=== PATIENT | female | born 1945 | race Caucasian/White ===

== ENCOUNTER 2019-02-24 07:31 | Day surgery (SDC) | payer OTHER ==
[2019-02-23 08:33] VITALS: BMI 38.9
[~2019-02-24 07:31] MED LIST: BUPIVACAINE HCL/PF 0.5% (5 MG/ML) 30 ML VIAL IJ ONE
[2019-02-24] MEDS ORDERED: BUPIVACAINE HCL/PF 0.5% (5 MG/ML) 30 ML VIAL IJ ONE ×2 (08:58→10:33)
--- NOTE | 2019-02-24 08:59 | HP ---
Satellite [facility] - Chief Complaint Chief Complaint: left knee pain History of Present Illness: left knee pain, medial meniscus tear History Source: Patient Limitations to Obtaining History: No Limitations - Past Medical History Allergies/Adverse Reactions: Allergies Allergy/AdvReac Type Severity Reaction Status Date / Time No Known Allergies Allergy Verified 02/24/19 08:01 - Current Medications Current Medications: Home Medications Medication Instructions Recorded Atorvastatin Ca [Lipitor] 10 mg PO HS #0 tablet 11/15/11 Acetaminophen [Tylenol] 650 mg PO PRN PRN 02/23/19 Cholecalciferol (Vitamin D3) 2,000 unit PO HS 02/23/19 [Vitamin D] Guaifenesin [Mucinex -] 600 mg PO PRN PRN 02/23/19 Methimazole [Tapazole -] 5 mg PO HS 02/23/19 Satellite Physical Exam - Physical Examination Vital Signs: Vital Signs Period Temp Pulse Resp BP Sys/Duron Pulse Ox Last 24 Hr 98.2 F-98.2 F 70-70 20-20 141-141/65-65 98 General Appearance: Well Nourished ENT: Clear Lung: Clear to auscultation Heart: Regular rate & rhythm Breasts: Soft Abdomen: Soft Extremities: No edema Satellite Impression/Plan - Impression/Plan Impression: left knee medial meniscus tear, OA Operative Procedure: left knee arthroscopy Date to be Performed: 02/24/19
[2019-02-24] MEDS ORDERED: MIDAZOLAM HCL 2 MG/2 ML SINGLE DOSE VIAL ONE (09:19)
[2019-02-24] MEDS ORDERED: ONDANSETRON 4 MG/2 ML VIAL IVPUSH PRN (09:21)
[2019-02-24] MEDS ORDERED: oxyCODONE HCL 5 MG TABLET PO PRN (09:21)
[2019-02-24] MEDS ORDERED: ceFAZolin SODIUM 1 GM VIAL IVPB ONE (09:30)
[2019-02-24] MEDS ORDERED: LACTATED RINGERS SOLUTION 1,000 ML IV SCH (09:30)
[2019-02-24] MEDS ORDERED: PROPOFOL 20 ML ONE (09:50)
[2019-02-24] MEDS ORDERED: DEXAMETHASONE SOD PHOSPHATE 4 MG/1 ML VIAL ONE (09:51)
[2019-02-24] MEDS ORDERED: LIDOCAINE HCL/PF 2% SDV 5ML VIAL ONE (09:51)
[2019-02-24] MEDS ORDERED: ceFAZolin SODIUM 1 GM VIAL ONE ×2 (09:51)
--- NOTE | 2019-02-24 10:42 | OP ---
Operative Note - Note: Operative Date: 02/24/19 Pre-Operative Diagnosis: left knee medial meniscus tear, OA Operation: left knee arthroscopy, partial medial meniscectomy, debridement chondroplasty Findings: Grade 4 OA Surgeon: Adis Whiting Anesthesiologist/OCCUPATIONAL HEALTH PROFESSIONAL: Akua Asher Anesthesia: General, Local Specimens Removed: shavings Estimated Blood Loss (mls): 50 Drains, Volume Out (mls): 0 Blood Volume Replaced (mls): 0 Fluid Volume Replaced (mls): 500 Operative Report Dictated: Yes
[2019-02-24 13:28] VITALS: TEMP 97.5
--- NOTE | 2019-02-24 13:58 | OP ---
DATE OF OPERATION: 02/24/2019 PREOPERATIVE DIAGNOSES: Left knee pain, medial meniscus tear, and osteoarthritis. POSTOPERATIVE DIAGNOSES: Left knee pain, medial meniscus tear, and osteoarthritis. PROCEDURE: Left knee arthroscopy, partial medial meniscectomy, and debridement chondroplasty. SURGEON: Bhupinder Ann MD ASSISTANTS: None. ANESTHESIA: Akua Asher, REF-CRN: LM anesthesia, local intraarticular injection of 20 mL of 0.5% Marcaine. DRAINS: None. COMPLICATIONS: None. SPECIMEN: Arthroscopic shavings. DRAINS: None. BLOOD LOSS: 50 mL. BLOOD GIVEN: None. This patient is a 73-year-old female with a preoperative diagnosis of recurrent left knee pain, osteoarthritis, and medial meniscus tear. After understanding the potential risks, complications, alternatives, and benefits to surgery versus nonsurgical treatment, the patient elected to undergo this procedure. The patient was brought to the operating room, peripheral IV placed, IV sedation given. A tourniquet was applied to left upper leg. The left lower extremity was prepped and draped, was put in the C clamp leg skinner with ample padding throughout, elevated, exsanguinated with an Esmarch bandage. Tourniquet inflated to 275 and then 300 cc of pressure. Superomedial outflow portal was established. A lateral portal was established and arthroscope was introduced in the joint under direct visualization using the spinal needle. A medial portal was established. A shaver was introduced in this joint. Diagnostic arthroscopy was performed. The patient had a tremendous amount of inflammation, torn fibers of the ACL, excessive Hoffa fat pad, and synovitis within the knee joint. This was all debrided with the shaver. After that, much better visualization was obtained. There were 2 radial tears of the posterior horn and body of the medial meniscus. These were debrided with a curved shaver. The patient had wide areas of grade 2 chondromalacia on both the medial tibial plateau and medial femoral condyle, and several areas, each about the size of a nickel, of grade 4 chondromalacia. This was debrided with loose flaps and debris was removed. Next, our attention was turned to the intercondylar notch. The patient had an almost complete tear of the anterior cruciate ligament. She also had a huge arthritic bone spur going up in the intercondylar notch. Both were debrided with a curved shaver and the osteophyte smoothed out. Next, the lateral compartment was directly visualized. She had a discoid meniscus but it did not look torn. The lateral femoral condyle had only grade 1 changes and overall looked good. The patellofemoral joint had widespread areas of grade 4 chondromalacia on both the femoral trochlea and undersurface of the patella as well as a lot of synovitis. This was debrided. Debridement chondroplasty was performed, and put the knee through a full range of motion. The patient had a lot of arthritis at the patellofemoral joint and I cleaned it up as much as possible. The area was copiously irrigated and washed out. All excess saline and instrumentation were removed. The arthroscopy portals were closed with 3-0 nylon sutures. The area was then washed and dried. Then 20 mL of 0.5% Marcaine was introduced into the joint. The incisions were the covered with Xeroform gauze, 4 x 4 gauze, Webril, and an Manfred bandage. Total tourniquet time was 20 minutes. There were no complications during the case. The patient tolerated the procedure quite well and was brought to the ambulatory recovery room in stable condition. BHUPINDER ANN M.D. [id number]
[2019-02-24] MEDS ORDERED: ONDANSETRON 4 MG/2 ML VIAL ONE (14:14)
[2019-02-24 16:21] VITALS: BP 142/60; PULSE 68
--- NOTE | 2019-02-25 17:29 | PATH ---
Surgical Pathology Report Patient Name: DANIELA REYES Med. Rec. #: [id number] /Age/Gender: 1945 (Age: 73) / F Account: [id number] Location: [facility] SURGICAL Taken: 02/24/2019 Received: 02/24/2019 Reported: 02/25/2019 Physicians: Adis Whiting M.D. Specimen(s) Received LEFT KNEE SHAVINGS Clinical History Left internal derangement Final Diagnosis KNEE SHAVINGS, LEFT, ARTHROSCOPY, PARTIAL MEDIAL MENISCECTOMY, CHONDROPLASTY: FRAGMENTS OF CARTILAGE, BONE, DENSE FIBROCONNECTIVE TISSUE, ADIPOSE TISSUE, AND SYNOVIUM. Electronically Signed Jyoti Woods M.D. Gross Description Received in formalin, labeled "left knee shavings," is a 4 x 2.5 x 1 cm. aggregate of george-yellow soft tissue fragments. A representative government relations portion is submitted in one cassette. MLSZ/02/24/2019 neeta/02/24/2019
== END 2019-02-24 16:24 | disposition home or self-care (01) ==
LOC: JASU-SURG 07:31
PROVIDERS: ATTEND Orthopaedic Surgery
PROC: 0SBD4ZZ Excision of Left Knee Joint, Percutaneous Endoscopic Approach (ICD-10-PCS; principal; 2019-02-24 09:00)
DX: S83.242A Other tear of medial meniscus, current injury, left knee, initial encounter (principal); M17.12 Unilateral primary osteoarthritis, left knee; X58.XXXA Exposure to other specified factors, initial encounter; Y93.9 Activity, unspecified; Y92.9 Unspecified place or not applicable; Y99.9 Unspecified external cause status; G47.30 Sleep apnea, unspecified
CPT/HCPCS: 88304-TC; 94760; 97116-GP

== ENCOUNTER 2021-04-17 06:40 | Day surgery (SDC) | payer OTHER ==
[2021-04-09 14:46] VITALS: BMI 38.3
[~2021-04-17 06:40] MED LIST changes: -BUPIVACAINE HCL/PF 0.5% (5 MG/ML) 30 ML VIAL IJ ONE; +VANCOMYCIN 1,000 MG VIAL (RESTRICTED TO ID ONLY) IVPB ONE
[2021-04-17] MEDS ORDERED: VANCOMYCIN 1,000 MG VIAL (RESTRICTED TO ID ONLY) ONE (07:11)
[2021-04-17] MEDS ORDERED: ceFAZolin SODIUM 1 GM VIAL ONE ×4 (07:11→23:32)
[2021-04-17] MEDS ORDERED: BUPIVACAINE HCL/PF 0.5% (5MG/ML) 10 ML VIAL ONE (08:06)
[2021-04-17] MEDS ORDERED: BUPIVACAINE LIPOSOME/PF (EXPAREL) 266 MG/20 ML VIAL ONE (08:06)
[2021-04-17] MEDS ORDERED: MIDAZOLAM HCL 2 MG/2 ML SINGLE DOSE VIAL ONE ×2 (08:06→08:07)
[2021-04-17] MEDS ORDERED: SUCCINYLCHOLINE CHLORIDE 200 MG/10 ML SYRINGE ONE (08:07)
[2021-04-17] MEDS ORDERED: PROPOFOL 20 ML ONE ×4 (08:07)
[2021-04-17] MEDS ORDERED: SODIUM CHLORIDE 0.9% P/F 10 ML VIAL IJ ONE (08:07)
[2021-04-17] MEDS ORDERED: BUPIVACAINE HCL 50 ML ONE (08:08)
[2021-04-17] MEDS ORDERED: DEXMEDETOMIDINE HCL 200 MCG/2 ML IVPB ONE (08:42)
[2021-04-17] MEDS ORDERED: TRANEXAMIC ACID 1000 MG/10 ML VIAL ONE (08:56)
[2021-04-17] MEDS ORDERED: DEXAMETHASONE SOD PHOSPHATE 4 MG/1 ML VIAL ONE (08:56)
[2021-04-17] MEDS ORDERED: ONDANSETRON 4 MG/2 ML VIAL ONE (08:56)
[2021-04-17] MEDS ORDERED: ePHEDrine SULFATE 50 MG/1 ML AMPULE ONE (08:59)
[2021-04-17] MEDS ORDERED: CEFAZOLIN 2 GM in DEXTROSE 5%-WATER - 50 ML IVPB ONE (09:00)
[2021-04-17] MEDS ORDERED: TRANEXAMIC ACID 1000 MG/10 ML VIAL IVPUSH ONE (09:00)
[2021-04-17] MEDS ORDERED: CELECOXIB 200 MG CAPSULE PO ONE (09:00)
[2021-04-17] MEDS ORDERED: ONDANSETRON 4 MG/2 ML VIAL IVPUSH PRN ×2 (09:04→11:11)
[2021-04-17] MEDS ORDERED: MAG HYDROX/AL HYDROX/SIMETH 30 ML UNIT-DOSE CUP PO PRN (09:04)
[2021-04-17] MEDS ORDERED: MAGNESIUM HYDROX 2400MG/30ML ORAL SUSPENSION 30 ML CUP PO PRN (09:04)
[2021-04-17] MEDS ORDERED: LACTATED RINGERS SOLUTION 1,000 ML IV SCH (09:15)
[2021-04-17] MEDS ORDERED: VANCOMYCIN 1,000 MG VIAL (RESTRICTED TO ID ONLY) IVPB ONE (10:10)
[2021-04-17] MEDS ORDERED: oxyCODONE HCL 5 MG TABLET PO PRN (11:11)
[2021-04-17] MEDS: MULTIVITAMINS (DAILY MVI) TABLET (FP) PO SCH (14:13)
[2021-04-17] MEDS: SENNOSIDES/DOCUSATE COMBO (SENNA PLUS) TABLET (UD) PO SCH ×2 (14:13→21:09)
[2021-04-17] MEDS: PANTOPRAZOLE 40 MG TABLET PO SCH (14:13)
[2021-04-17] MEDS: ACETAMINOPHEN 500 MG TABLET (FP) PO SCH ×2 (14:45→21:09)
[2021-04-17] MEDS ORDERED: DEXTROSE 5%-WATER - 50 ML IVPB ONE ×2 (16:28→23:32)
[2021-04-17] MEDS: CEFAZOLIN 2 GM in DEXTROSE 5%-WATER - 50 ML IVPB SCH (16:41)
[2021-04-17] MEDS: ATORVASTATIN CA 10 MG TABLET (FP) PO SCH (21:10)
[2021-04-17] MEDS: METHIMAZOLE 5 MG TABLET PO SCH (21:10)
[2021-04-17] MEDS: oxyCODONE HCL 5 MG TABLET PO PRN (21:11)
[2021-04-18] MEDS: CEFAZOLIN 2 GM in DEXTROSE 5%-WATER - 50 ML IVPB SCH (00:01)
[2021-04-18] MEDS: ACETAMINOPHEN 500 MG TABLET (FP) PO SCH ×4 (02:23→20:19)
[2021-04-18] MEDS: oxyCODONE HCL 5 MG TABLET PO PRN ×4 (06:16→21:19)
[2021-04-18 08:17] LABS: HEMATOCRIT 36.8 % (32.4-45.2); HEMOGLOBIN 12.3 GM/dl (10.7-15.3); MCH 31.4 pg (25.7-33.7); MCHC 33.5 g/dl (32.0-36.0); MEAN CELL VOLUME 93.6 fl (80-96); MEAN PLT VOLUME 7.4 fl (7.5-11.1); PLATELET COUNT 254 10^3/uL (134-434); RBC 3.93 M/mm3 (3.60-5.2); RDW 12.8 % (11.6-15.6); WHITE BLOOD COUNT 9.4 K/mm3 (4.0-10.8)
[2021-04-18] MEDS: ASPIRIN 325 MG TABLET PO SCH (08:43)
[2021-04-18] MEDS: MULTIVITAMINS (DAILY MVI) TABLET (FP) PO SCH (09:41)
[2021-04-18] MEDS: PANTOPRAZOLE 40 MG TABLET PO SCH (09:41)
[2021-04-18] MEDS: SENNOSIDES/DOCUSATE COMBO (SENNA PLUS) TABLET (UD) PO SCH ×2 (09:41→21:19)
[2021-04-18] MEDS: METHIMAZOLE 5 MG TABLET PO SCH (21:18)
[2021-04-18] MEDS: ATORVASTATIN CA 10 MG TABLET (FP) PO SCH (21:18)
[2021-04-19] MEDS: ACETAMINOPHEN 500 MG TABLET (FP) PO SCH ×3 (03:00→13:08)
[2021-04-19] MEDS: oxyCODONE HCL 5 MG TABLET PO PRN (05:35)
[2021-04-19] MEDS ORDERED: FAMOTIDINE 20 MG/50 ML IVPB 20 MG/50 ML MG IVPB ONE (08:15)
[2021-04-19 08:20] LABS: HEMATOCRIT 32.8 % (32.4-45.2); HEMOGLOBIN 11.4 GM/dl (10.7-15.3); MCH 32.6 pg (25.7-33.7); MCHC 34.7 g/dl (32.0-36.0); MEAN CELL VOLUME 93.8 fl (80-96); MEAN PLT VOLUME 7.4 fl (7.5-11.1); PLATELET COUNT 238 10^3/uL (134-434); RBC 3.49 M/mm3 (3.60-5.2); RDW 12.6 % (11.6-15.6); WHITE BLOOD COUNT 8.9 K/mm3 (4.0-10.8)
[2021-04-19] MEDS: MULTIVITAMINS (DAILY MVI) TABLET (FP) PO SCH (09:07)
[2021-04-19] MEDS: SENNOSIDES/DOCUSATE COMBO (SENNA PLUS) TABLET (UD) PO SCH (09:07)
[2021-04-19 09:08] VITALS: BP 135/48; PULSE 84; TEMP 98.1
[2021-04-19] MEDS: PANTOPRAZOLE 40 MG TABLET PO SCH (09:10)
[2021-04-19] MEDS: ASPIRIN 325 MG TABLET PO SCH (09:10)
== END 2021-04-19 13:47 | disposition home health service (06) ==
LOC: FASUSAT 06:40 → EDSTATUS 10:30 → FM/S 12:14 → FASUSAT 04-19 13:47
PROVIDERS: ATTEND Orthopaedic Surgery
PROC: 8E0YXBZ Computer Assisted Procedure of Lower Extremity (ICD-10-PCS; 2021-04-17)
PROC: 8E0Y0CZ Robotic Assisted Procedure of Lower Extremity, Open Approach (ICD-10-PCS; 2021-04-17)
PROC: 0SRC0J9 Replacement of Right Knee Joint with Synthetic Substitute, Cemented, Open Approach (ICD-10-PCS; principal; 2021-04-17 09:13)
DX: M17.11 Unilateral primary osteoarthritis, right knee (principal)
CPT/HCPCS: 20985; 27447; C1776; S2900; 36415; 73560-TC-RT-FY; 85027; 94010; 94760; 97010-GP; 97116-GP; 97163-GP

== ENCOUNTER 2021-08-21 05:51 | Day surgery (SDC) | payer OTHER ==
[2021-08-16 10:42] VITALS: BMI 38.9
[2021-08-21] MEDS ORDERED: CEFAZOLIN 2 GM in DEXTROSE 5%-WATER - 50 ML IVPB ONE (06:19)
[2021-08-21] MEDS ORDERED: CELECOXIB 200 MG CAPSULE PO ONE (06:19)
[2021-08-21] MEDS ORDERED: TRANEXAMIC ACID 1000 MG/10 ML VIAL IVPUSH ONE (06:19)
[2021-08-21] MEDS ORDERED: BUPIVACAINE LIPOSOME/PF (EXPAREL) 266 MG/20 ML VIAL ONE (06:56)
[2021-08-21] MEDS ORDERED: SODIUM CHLORIDE 0.9% P/F 10 ML VIAL IJ ONE ×2 (06:56→08:23)
[2021-08-21] MEDS ORDERED: BUPIVACAINE HCL 50 ML ONE ×2 (06:56→07:12)
[2021-08-21] MEDS ORDERED: MIDAZOLAM HCL 2 MG/2 ML SINGLE DOSE VIAL ONE ×2 (06:56→08:40)
[2021-08-21] MEDS ORDERED: PROPOFOL 20 ML ONE ×3 (07:01)
[2021-08-21] MEDS ORDERED: ceFAZolin SODIUM 1 GM VIAL ONE ×3 (07:10→15:50)
[2021-08-21] MEDS ORDERED: VANCOMYCIN 1,000 MG VIAL (RESTRICTED TO ID ONLY) ONE (07:10)
[2021-08-21] MEDS ORDERED: MAG HYDROX/AL HYDROX/SIMETH 30 ML UNIT-DOSE CUP PO PRN (07:59)
[2021-08-21] MEDS ORDERED: ONDANSETRON 4 MG/2 ML VIAL IVPUSH PRN ×2 (07:59→10:39)
[2021-08-21] MEDS ORDERED: LACTATED RINGERS SOLUTION 1,000 ML IV SCH (08:00)
[2021-08-21] MEDS ORDERED: TRANEXAMIC ACID 1000 MG/10 ML VIAL ONE (08:08)
[2021-08-21] MEDS ORDERED: ONDANSETRON 4 MG/2 ML VIAL ONE (08:23)
[2021-08-21] MEDS ORDERED: DEXAMETHASONE SOD PHOSPHATE 4 MG/1 ML VIAL ONE (08:23)
[2021-08-21] MEDS ORDERED: PHENYLEPHRINE HCL 10 MG/1 ML SINGLE DOSE VIAL ONE (08:23)
[2021-08-21] MEDS ORDERED: ACETAMINOPHEN 1000 MG/100 ML BAG IVPB ONE (10:39)
[2021-08-21] MEDS ORDERED: ACETAMINOPHEN INJECTION 100 ML IVPB ONE (10:48)
[2021-08-21] MEDS ORDERED: KETOROLAC TROMETHAMINE 30 MG/1 ML VIAL ONE (10:54)
[2021-08-21] MEDS: KETOROLAC TROMETHAMINE 30 MG/1 ML VIAL IVPUSH SCH ×2 (10:55→16:01)
[2021-08-21] MEDS ORDERED: DEXTROSE 5%-WATER - 50 ML IVPB ONE (15:51)
[2021-08-21] MEDS: ACETAMINOPHEN 500 MG TABLET (FP) PO SCH ×2 (16:00→23:38)
[2021-08-21] MEDS ORDERED: CEFAZOLIN 2 GM in DEXTROSE 5%-WATER - 50 ML IVPB SCH (16:00)
[2021-08-21] MEDS: oxyCODONE HCL 5 MG TABLET PO PRN (16:07)
[2021-08-21] MEDS: oxyCODONE HCL 10 MG SUSTAINED ACTING TABLET PO SCH (21:13)
[2021-08-21] MEDS: ATORVASTATIN CA 10 MG TABLET (FP) PO SCH (21:16)
[2021-08-21] MEDS: METHIMAZOLE 5 MG TABLET PO SCH (21:16)
[2021-08-21] MEDS: SENNOSIDES/DOCUSATE COMBO (SENNA PLUS) TABLET (UD) PO SCH (21:17)
[2021-08-22] MEDS ORDERED: ceFAZolin SODIUM 1 GM VIAL ONE (00:09)
[2021-08-22] MEDS ORDERED: DEXTROSE 5%-WATER - 50 ML IVPB ONE (00:09)
[2021-08-22] MEDS ORDERED: CEFAZOLIN 2 GM in DEXTROSE 5%-WATER - 50 ML IVPB SCH (00:15)
[2021-08-22] MEDS: ACETAMINOPHEN 500 MG TABLET (FP) PO SCH ×3 (05:49→17:31)
[2021-08-22] MEDS: ASPIRIN 325 MG TABLET PO SCH (07:42)
[2021-08-22] MEDS: oxyCODONE HCL 5 MG TABLET PO PRN ×2 (07:42→21:18)
[2021-08-22 10:00] LABS: HEMATOCRIT 33.3 % (32.4-45.2); HEMOGLOBIN 11.4 GM/dL (10.7-15.3); MCH 31.5 pg (25.7-33.7); MCHC 34.2 g/dl (32.0-36.0); MEAN CELL VOLUME 92.2 fl (80-96); MEAN PLT VOLUME 7.6 fl (7.5-11.1); PLATELET COUNT 235 10^3/uL (134-434); RBC 3.62 M/mm3 (3.60-5.2); RDW 13.7 % (11.6-15.6); WHITE BLOOD COUNT 8.3 K/mm3 (4.0-10.0)
[2021-08-22] MEDS: PANTOPRAZOLE 40 MG TABLET PO SCH (11:24)
[2021-08-22] MEDS: MULTIVITAMINS (DAILY MVI) TABLET (FP) PO SCH (11:24)
[2021-08-22] MEDS: SENNOSIDES/DOCUSATE COMBO (SENNA PLUS) TABLET (UD) PO SCH ×2 (11:25→21:14)
[2021-08-22] MEDS: oxyCODONE HCL 10 MG SUSTAINED ACTING TABLET PO SCH ×2 (11:26→21:14)
[2021-08-22] MEDS: METHIMAZOLE 5 MG TABLET PO SCH (21:19)
[2021-08-22] MEDS: ATORVASTATIN CA 10 MG TABLET (FP) PO SCH (21:19)
[2021-08-23] MEDS: oxyCODONE HCL 5 MG TABLET PO PRN (05:03)
[2021-08-23] MEDS: ACETAMINOPHEN 500 MG TABLET (FP) PO SCH ×3 (05:04→12:01)
[2021-08-23 08:45] LABS: HEMATOCRIT 31.7 % (32.4-45.2); HEMOGLOBIN 10.8 GM/dL (10.7-15.3); MCH 31.3 pg (25.7-33.7); MEAN CELL VOLUME 92.3 fl (80-96); MEAN PLT VOLUME 7.7 fl (7.5-11.1); PLATELET COUNT 238 10^3/uL (134-434); RBC 3.44 M/mm3 (3.60-5.2); RDW 14.2 % (11.6-15.6); WHITE BLOOD COUNT 8.9 K/mm3 (4.0-10.0)
[2021-08-23 09:45] VITALS: BP 126/45; PULSE 94; TEMP 98.9
[2021-08-23] MEDS: SENNOSIDES/DOCUSATE COMBO (SENNA PLUS) TABLET (UD) PO SCH ×2 (10:07→10:11)
[2021-08-23] MEDS: ASPIRIN 325 MG TABLET PO SCH (10:07)
[2021-08-23] MEDS: PANTOPRAZOLE 40 MG TABLET PO SCH (10:07)
[2021-08-23] MEDS: oxyCODONE HCL 10 MG SUSTAINED ACTING TABLET PO SCH (10:08)
[2021-08-23] MEDS: MULTIVITAMINS (DAILY MVI) TABLET (FP) PO SCH (10:09)
== END 2021-08-23 11:49 | disposition home health service (06) ==
LOC: FASUSAT 05:51 → EDSTATUS 08:00 → FM/S 11:22 → FASUSAT 08-23 11:49
PROVIDERS: ATTEND Orthopaedic Surgery
PROC: 8E0YXBZ Computer Assisted Procedure of Lower Extremity (ICD-10-PCS; 2021-08-21)
PROC: 8E0Y0CZ Robotic Assisted Procedure of Lower Extremity, Open Approach (ICD-10-PCS; 2021-08-21)
PROC: 0SRD0J9 Replacement of Left Knee Joint with Synthetic Substitute, Cemented, Open Approach (ICD-10-PCS; principal; 2021-08-21 08:22)
DX: M17.12 Unilateral primary osteoarthritis, left knee (principal)
CPT/HCPCS: 20985; 27447; C1776; S2900; 36415; 73560-TC-LT-FY; 85027; 94760; 97010-GP; 97116-GP; 97162-GP